=== PATIENT | male | born 1930 | race Caucasian/White ===

== ENCOUNTER 2017-10-10 23:13 | Observation (INO) | payer MEDICARE ==
[2017-10-11] MEDS ORDERED: Ondansetron ODT 4 MG TAB SL PRN (02:51)
[2017-10-11] MEDS ORDERED: Ondansetron HCl/PF 4 MG/2 ML Vial IVP PRN (02:51)
[2017-10-11] MEDS ORDERED: Acetaminophen 325 MG TAB PO PRN (02:51)
[2017-10-11] MEDS ORDERED: Carbidopa/Levodopa 25-250 mg Tablet PO SCH (07:00)
[2017-10-11] MEDS: Carbidopa/Levodopa 25-250 mg Tablet PO SCH ×3 (08:51→21:01)
[2017-10-11] MEDS ORDERED: Prevnar 13-Val Conj/PF 0.5 ML SYRINGE IM ONE (09:00)
[2017-10-11] MEDS: Donepezil HCl 10 MG TAB PO SCH (10:13)
[2017-10-11 10:37] LABS: Cardiac Risk 4.8 (Less than 4.5)
--- NOTE | 2017-10-11 10:40 | HP ---
CHIEF COMPLAINT: Left-sided pain. HISTORY OF PRESENT ILLNESS: Patient is an 87-year-old male who was transferred from the emergency department in [place]. The patient is unable to give much history and most of the history was obtained from the patient's daughter who does not actually live with the patient. They report that the patient apparently on Wednesday had simply slid out of his chair, but did not have any serious injury. Some slight bruises on his elbows on Wednesday. The patient's who came to check on him found him sleeping on the floor next to the bed, but she is not aware of any injury or fall that the patient might have had. The patient was subsequently experiencing some wincing when taking deep breaths and seemed to be focusing more on his left side. His family was gathered for his birthday yesterday when he noticed this and ultimately decided to take the patient to the [place] [facility]. There, the patient was thought to possibly have some left-sided weakness and facial droop. He was subsequently transferred to this facility for workup for possible TIA or stroke. The patient does have significant underlying Parkinson's disease and has stone facies and limited mobility. Also, of note, the patient has some history of abnormal swallowing study that the details of that are not known. PAST MEDICAL HISTORY: Primarily notable for the Parkinson's disease. PAST SURGICAL HISTORY: Hemorrhoidectomy, hernia repair and cholecystectomy. SOCIAL HISTORY: Very remote smoking history, quit in 1950s. No significant alcohol use. Patient is . Code status will be FULL CODE. Has not been able to have a discussion with the patient's family at this time. REVIEW OF SYSTEMS: Not obtainable. ALLERGIES: None. HOME MEDICATIONS: Aricept 10 mg daily, carbidopa/levodopa 25/250 one p.o. t.i.d., Ocuvite 1 tab every day and Centrum Silver 1 tab p.o. daily. PHYSICAL EXAMINATION: VITAL SIGNS: Temperature 98.4, pulse 93, respirations 16, O2 sat 93% on room air, BP is 159/71. GENERAL APPEARANCE: Age appropriate male. He is in no distress. He is a bit somnolent. He does awaken and is modestly cooperative with the exam at times. HEENT: No icteric sclerae. Pupils appeared to be reactive. NECK: Supple and symmetric. HEART: Has regular rate and rhythm without murmurs, gallops or rubs. LUNGS: Clear bilaterally, but again the patient is not taking good deep breaths. ABDOMEN: Soft, nontender, nondistended, positive bowel sounds. SKIN: Warm and dry without edema. LABORATORY DATA AND IMAGING DATA: From the outside facility, sodium 141, potassium 4.1, chloride 103, CO2 27, BUN 21.6, creatinine 1.0, glucose 110. White count 8.13, hemoglobin 14, platelets 158. Troponin less than 0.01, CK 98 , INR 1.1, PT is 14.5. UA is negative for leukocytes or nitrites. Tox screen is negative. Workup there included CT and CTA of the head and neck with no acute findings and no carotid occlusion. CT of the chest showed a left pleural effusion, which is small to moderate with some left-sided atelectasis or pneumonia and some constipation as well. ASSESSMENT AND PLAN: 1. Possible transient ischemic attack based on the patient's findings at the outside facility. He did have a CT and CTA, which were negative. We will obtain an MRI and a neuro consult. We will also get physical therapy to see the patient. 2. History of dysphagia. We will ask speech therapy to reevaluate that with the patient at this time. The possibly may have had some aspiration. 3. Pleural effusion with possible pneumonia. The patient received a dose of Levaquin at the outside facility, but that have some prolonged QT problems with the donepezil. We will change to azithromycin and Rocephin. 4. Constipation. We will give the patient stool softeners. 5. Parkinson's disease. Continue with his usual home medications. [facility]
[2017-10-11] MEDS: cefTRIAXone\\ROCEPHIN 1 GM in Sodium Chloride 0.9% 100 ML IVPB SCH (11:54)
[2017-10-11] MEDS ORDERED: Bisacodyl 10 MG SUPP PR PRN (14:52)
[2017-10-11] MEDS ORDERED: HYDROcodone/Acetaminophen 5/325 mg Tablet PO PRN (14:52)
--- NOTE | 2017-10-11 16:26 | MRI ---
MRI BRAIN WITHOUT IV CONTRAST: Date: 10/11/17 HISTORY: TIA. Patient slid out of chair on Wednesday. Generalized weakness. FINDINGS: There are patchy and confluent areas of increased FLAIR and T2-weighted signal intensity in the periv entricular and lesser extent of the subcortical white matter which is nonspecific but likely reflecti ve of moderate chronic small vessel ischemic changes. There is no evidence of an acute infarction. Th ere is mild cerebral volume loss. Septum pellucidum and third ventricle are on the midline. Ventricul ar system is normal in size, shape, and position for the degree of sulcal atrophy. Appropriate flow-voids are demonstrated at the base of the brain. [place] lenses are not visualized. Skull base has a normal MRI appearance. There is mild mucosal thickening in each maxillary antrum. There is a tiny amount of fluid seen withi n the posterior pharynx, which may be related to secretions. IMPRESSION: 1. No acute intracranial abnormalities demonstrated. 2. Chronic small vessel ischemic changes and cerebral volume loss. 3. Mild sinus disease. POS: DIMITRIS
[2017-10-11] MEDS: Enoxaparin Sodium 80 MG/0.8 ML SYRINGE SC SCH (21:00)
--- NOTE | 2017-10-12 01:26 | CON ---
DATE OF CONSULTATION: 10/11/2017 REFERRING PHYSICIAN: Dr. Freddie Bingham. REASON FOR ADMISSION: Altered mental status. HISTORY OF PRESENT ILLNESS: Mr. Awad is a pleasant 87-year-old male who has been beny rned for evaluation of altered mental status. History is obtained from daughter who was present at [facility]. Daughter reports that patient has a history of Parkinson disease that has been diagnosed at 2007. He has slowly declined in his parkinsonian symptoms and now able to walk with the support of a walker. He also having a cognitive impairment as well as hallucinations. She notes that at [facility], he tends to have some speech difficulty and hallucinations, where she states that on day before , he was sitting down in a chair and has slid down on to the floor. He did not harm himself a t that time. Few hours later, his went to go check on him and he was lying on the side of the ed. They are not sure whether he fell down or he slid down from the bed to the floor. When they got him up, he was somewhat grimacing on his left side and was complaining of this pain in the left side of the chest, which prompted them to take him to the [facility] in [place], where he was evaluated and was noted to have left facial droop and left-sided weakness and thus he was transferred over to [facility]. Daughter reports that they did not particular in appreciate any facial asymmetry or weakness on his left side. He did have a chest x-ray and CT scan of his chest do ne, which showed pericardial effusion, for which he received one dose of antibiotics on yesterday. Perez coombs feels that he has returned back to his baseline. PAST MEDICAL HISTORY, PAST SURGICAL HISTORY, FAMILY HISTORY, SOCIAL HISTORY, CURRENT MEDICATIONS, AND ALLERGIES: Reviewed, data as dictated in H and P note done by Dr. Freddie Bingham. REVIEW OF SYSTEMS: Unable to perform. PHYSICAL EXAMINATION: VITAL SIGNS: Blood pressure 126/66, pulse of 81, temperature of 97.6, respirations of 16, O2 sats of 93% on room air. GENERAL: Well-developed, well-nourished male in no apparent distress. RESPIRATORY: Clear to auscultation bilaterally. CARDIOVASCULAR: Regular rate and rhythm. NEUROLOGIC: Mental status: Patient is drowsy appearing. He does not follow any commands. He does not communicate. He remains nonverbal during my visitation. Speech and language nonverbal. Cranial nerves: Pupils are 3 mm and reactive. His face appears symmetric. Motor exam showed mild cognitiv e rigidity in both upper extremities at the wrist. 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 Sensory: Sensation appears intact to light touch. Deep tendon reflexes 1+ reflexes in both upper and lower extremities. Babinski: Pl bernadette responses flexion bilaterally. Gait and Romberg coordination could not be tested. LABORATORY DATA: Reviewed, which included D-dimer and lipid profile, which is significant for D-Dime r was 0.93. IMAGING STUDIES: MRI brain without contrast was reviewed, which showed no acute intracranial abnorma lity. IMPRESSION: 1. Altered mental status, likely toxic metabolic encephalopathy. 2. Pericardial effusion. Mr. Awad is a pleasant 87-year-old male who presented with history of Parkinson disease and dementia and psychosis presented with the altered mental status. I have reviewed his MRI brain without contrast, which showed no acute intracranial abnormality. He likely had a toxic metabolic en cephalopathy, as the cause for his recent symptoms. I would recommend continuing current medical man agement. Continue treatment for pleural effusion. Thank you for consultation.
[2017-10-12 04:28] LABS: #Basophils 0.1 thou/uL (0.0-0.2); #Eosinphils 0.1 thou/uL (0.0-0.7); #Lymphocytes 1.2 thou/uL (1.20-3.40); #Monocytes 0.8 thou/uL (0.11-0.59); #Neutrophils 4.7 thou/uL (1.40-6.50); %Basophils 1.6 % (0.0-1.0); %Eosinophils 1.5 % (0.0-10.0); %Lymphocytes 17.1 % (21.0-51.0); %Neutrophils 68.8 % (42.0-75.0); Hemoglobin 12.3 g/dL (14.0-18.0); Mean Corpuscular Hemoglobin 33.2 pg (27.0-31.0); Mean Corpuscular Volume 97.6 fL (78.0-98.0); Mean Platelet Volume 6.9 fL (7.4-10.4); Platelet Count 143 thou/uL (130-400); RBC Distribution Width 11.5 % (11.5-14.5); White Blood Cell (WBC) Count 6.8 thou/uL (4.8-10.8)
[2017-10-12 06:16] LABS: Anion Gap 16 mmol/L (10-20); BUN (Urea Nitrogen) 14 mg/dL (8.4-25.7); Calc. Creatinine Clearance 74 mL/min (70-130); Calcium 8.5 mg/dL (7.8-10.44); Carbon Dioxide 22 mmol/L (23-31); Chloride 104 mmol/L (98-107); Estimated GFR-MDRD Greater than 90; Glucose 86 mg/dL (83-110); Potassium 3.9 mmol/L (3.5-5.1); Sodium 138 mmol/L (136-145)
--- NOTE | 2017-10-12 09:12 | CT ---
CT CHEST NONCONTRAST: HISTORY: Dyspnea. Chest pain. Pleural effusion. FINDINGS: A moderate amount of pleural fluid layers within the dependent portion of the left hemithorax with a small amount of compressive atelectasis at the left lung base. The lungs are otherwise well inflated . No pleural fluid on the right. No evidence of pneumothorax. Mild arterial calcification. No bul ky mediastinal adenopathy. Scattered small, nonspecific lymph nodes are apparent. The gallbladder i s surgically absent. IMPRESSION: 1. Moderate sized left pleural effusion with mild associated compressive atelectasis. Cause is not evident. 2. Atherosclerosis. POS: TOMAS
[2017-10-12] MEDS: cefTRIAXone\\ROCEPHIN 1 GM in Sodium Chloride 0.9% 100 ML IVPB SCH (09:26)
[2017-10-12] MEDS: Enoxaparin Sodium 80 MG/0.8 ML SYRINGE SC SCH ×2 (09:27→22:16)
--- NOTE | 2017-10-12 14:50 | RAD ---
AP CHEST: History: Patient with respiratory distress. Shortness of breath. Date: 10-12-17 FINDINGS: There is a left sided pleural effusion. There may be some component of a left lower lobe atelectasis or pneumonia as well. Some cardiomegaly is seen. The right lung is well aerated. IMPRESSION: Area of opacity in the left lung base. Differential diagnosis includes pneumonia versus left sided ef fusion or a combination of the two. POS: C
[2017-10-12] MEDS ORDERED: Sodium Chloride 0.45% 500 ML IV SCH (15:30)
[2017-10-12] MEDS: Carbidopa/Levodopa 25-250 mg Tablet PO SCH ×3 (15:31→22:15)
--- NOTE | 2017-10-12 15:31 | PDOC.PN ---
- Subjective Encounter Start Date: 10/12/17 Encounter Start Time: 10:00 Patient seen a couple of times today. Was very sleepy this morning. He is more awake and alert this afternoon (3:29). He is taking some apple sauce now, but has not eaten a lot. He did have a bowel movement, but it was loose. - Objective Resuscitation Status: Resuscitation Status FULL:Full Resuscitation Vital Signs & Weight: Vital Signs (12 hours) Temp Pulse Pulse Pulse Resp BP BP 10/12/17 11:44 98.2 F 67 16 10/12/17 09:45 66 66 168/70 H 193/81 H 10/12/17 08:15 98.5 F 66 18 10/12/17 07:50 98.5 F 66 18 10/12/17 04:02 97.4 F L 73 20 BP Pulse Ox 10/12/17 11:44 140/62 94 L 10/12/17 09:45 10/12/17 08:15 10/12/17 07:50 174/74 H 91 L 10/12/17 04:02 159/75 H 94 L Weight Weight 175 lb 12.8 oz I&O: 10/11/17 10/12/17 10/13/17 06:59 06:59 06:59 Intake Total 110 890 Balance 110 890 Result Diagrams: 10/12/17 03:58 10/12/17 05:18 Phys Exam - Physical Examination Constitutional: NAD Currently awake and alert. Still not very talkative. Respiratory: no wheezing, no rales, no rhonchi, clear to auscultation bilateral Cardiovascular: RRR, no significant murmur Gastrointestinal: soft, non-tender, no distention, positive bowel sounds Musculoskeletal: no edema Neurological: non-focal, normal sensation Deviation from normal: flat affect. Skin: no rash Dx/Plan (1) TIA (transient ischemic attack) Code(s): G45.9 - TRANSIENT CEREBRAL ISCHEMIC ATTACK, UNSPECIFIED Status: Acute Comment: Initially thought to be TIA at outside facility, but per family he did not have any acute neuro changes. Negative work up. Cleared by Neurology. (2) Pleural effusion Code(s): J90 - PLEURAL EFFUSION, NOT ELSEWHERE CLASSIFIED Status: Acute Comment: Unclear etiology. Did have a minor injury that could be source. May be parapneumonic or PE. Had CT chest today. VQ pending. LE doppler pending. (3) Parkinson disease Code(s): G20 - PARKINSON'S DISEASE Status: Acute Comment: Continue with Sinemet as he is able to take it with his level of alertness. (4) Dysphagia Code(s): R13.10 - DYSPHAGIA, UNSPECIFIED Status: Acute Comment: Eval'd by [employer]. On mechanical soft and thin liquids. (5) Constipation Code(s): K59.00 - CONSTIPATION, UNSPECIFIED Status: Acute Comment: Had constipation on outside imaging. Had a BM but liquid. Will go ahead with Miralax that was ordered. It has not been given yet as he was not awake and alert enough to drink it. Will give a little IVF as well. May be a little dry. Not taking much PO. - Plan * Discussed with patient's daughter. His level of alertness waxes and wanes all the time. This is not unusual for him, but it has made it difficult to treat him with oral meds. Will give the miralax now. Awaiting the results of the VQ and LE dopplers. Anticipate discharge in the morning with oral antibiotics assuming no PE.
[2017-10-12] MEDS: Polyethylene Glycol 3350 17 GM Packet PO SCH (15:32)
[2017-10-12] MEDS: Saccharomyces boulardii 250 MG CAP PO SCH (15:32)
[2017-10-12] MEDS: Donepezil HCl 10 MG TAB PO SCH (15:32)
--- NOTE | 2017-10-12 15:42 | ULT ---
BILATERAL EXTREMITY VENOUS ULTRASOUND WITH DOPPLER 10/12/17 HISTORY: Chest pain. Shortness of breath. Evaluate for thrombus. COMPARISON: None. TECHNIQUE: Mcclelland scale, color flow, doppler imaging with spectral waveform analysis performed in the left and rig ht lower extremity venous system. FINDINGS: Bilateral compressibility, compressive flow and augmentation of the common femoral vein, femoral vein , and popliteal vein. Flow in the greater saphenous vein, profunda vein and posterior tibial veins. IMPRESSION: No evidence of thrombus in the left or right lower extremity deep venous system. POS: DIMITRIS
[2017-10-13 06:17] VITALS: BMI 26.6
[2017-10-13] MEDS: Donepezil HCl 10 MG TAB PO SCH (08:59)
[2017-10-13] MEDS: Carbidopa/Levodopa 25-250 mg Tablet PO SCH ×2 (08:59→15:43)
[2017-10-13] MEDS: Saccharomyces boulardii 250 MG CAP PO SCH (08:59)
[2017-10-13] MEDS: Enoxaparin Sodium 80 MG/0.8 ML SYRINGE SC SCH (09:00)
[2017-10-13] MEDS: Polyethylene Glycol 3350 17 GM Packet PO SCH (09:03)
[2017-10-13] MEDS: cefTRIAXone\\ROCEPHIN 1 GM in Sodium Chloride 0.9% 100 ML IVPB SCH (10:15)
--- NOTE | 2017-10-13 10:48 | NM ---
NUCLEAR MEDICINE VENTILATION PERFUSION SCAN: (V/Q SCAN) 10/12/2017 HISTORY: An 87-year-old male with chest pain and dyspnea. Rule out PE. TECHNIQUE: Xenon-133 gas dose: 21.9 millicuries. [id number] dose: 6.5 millicuries. The patient inhaled Xenon-133 gas, and dynamic ventilation scintigraphy was performed. [id number] was injected IV, and multiple perfusion scintigraphic views were obtained. FINDINGS: There are no moderate-sized or large perfusion defects. There are no significant ventilation/perfusi on mismatches. IMPRESSION: Low probability for pulmonary thromboembolism. jn [] POS: DIMITRIS
[2017-10-13 12:00] VITALS: TEMP 97.4
[2017-10-13 12:46] VITALS: BP 139/64
--- NOTE | 2017-10-13 15:05 | PDOC.PN ---
- Subjective Encounter Start Date: 10/13/17 Encounter Start Time: 15:03 Mr. Awad was seen today in follow-up. He has no complaints. - Objective Resuscitation Status: Resuscitation Status FULL:Full Resuscitation MAR Reviewed: Yes Vital Signs & Weight: Vital Signs (12 hours) Temp Pulse Pulse Pulse Resp BP BP 10/13/17 11:59 97.4 F L 68 16 10/13/17 09:34 74 67 139/64 148/69 H 10/13/17 08:50 97.4 F L 68 16 10/13/17 07:47 98.3 F 68 16 10/13/17 06:41 62 10/13/17 04:00 98.0 F 67 18 BP Pulse Ox 10/13/17 11:59 133/63 96 10/13/17 09:34 10/13/17 08:50 10/13/17 07:47 170/75 H 97 10/13/17 06:41 158/72 H 10/13/17 04:00 180/75 H 96 Weight Weight 175 lb 11.2 oz I&O: 10/12/17 10/13/17 10/14/17 06:59 06:59 06:59 Intake Total 890 240 Output Total 200 Balance 890 40 Result Diagrams: 10/12/17 03:58 10/12/17 05:18 Phys Exam - Physical Examination HEENT: PERRLA Respiratory: no wheezing, no rales, no rhonchi, clear to auscultation bilateral Cardiovascular: RRR, no significant murmur, no rub Gastrointestinal: soft, non-tender, positive bowel sounds Musculoskeletal: no edema Dx/Plan (1) Pneumonia, community acquired Code(s): J18.9 - PNEUMONIA, UNSPECIFIED ORGANISM Status: Acute (2) Parkinson disease Code(s): G20 - PARKINSON'S DISEASE Status: Acute Comment: Continue with Sinemet as he is able to take it with his level of alertness. - Plan * Pneumonia- he is clinically improved- VQ scan and lower extremity dopplers were negative * He is stable for discharge home * TIA, and CVA were ruled out.
--- NOTE | 2017-10-14 01:21 | DIS ---
DATE OF ADMISSION: 10/11/2017 DATE OF DISCHARGE: 10/13/2017 PRIMARY CARE PHYSICIAN: Dr. Edward Rowley. DISCHARGE DISPOSITION: Home. PRIMARY DISCHARGE DIAGNOSES: 1. Community-acquired pneumonia. 2. Advanced Parkinson's disease. DISCHARGE MEDICATIONS: Include Levaquin 500 mg 1 p.o. daily, continue carbidopa/levodopa 25/250 one tablet 3 times a day, Aricept 10 mg daily, vitamin C and lutein once daily, and multivitamin once a d ay. CODE STATUS: FULL CODE. ALLERGIES: No known drug allergies. PROCEDURES DONE DURING ADMISSION: Patient had an MRI of the brain showing no acute intracranial abno rmalities and some chronic small vessel disease, mild sinus disease. The patient had a CT scan of th e chest showing moderate-sized pleural effusion with an associated compressive atelectasis. The gary ent had lower extremity venous Dopplers, which were negative and V/Q scan which was low probability f or PE. HOSPITAL COURSE: Mr. Awad is a pleasant 87-year-old gentleman who presented to the emergency [facility] with generalized weakness and some weakness on the left side. He was initially thought to possibly have a TIA, but this was ruled out by Neurology. MRI of the brain was negative. It was found that he had some atelectasis and effusion by CT scan. A follow up chest x-ray the following day demonstra jose evidence for possible infiltrate in that area. V/Q scan was low probability. He was treated wit h IV antibiotics and then switched to oral antibiotics and is being discharged home on Levaquin and i s to have close outpatient followup.
== END 2017-10-13 17:12 | disposition home or self-care (01) ==
LOC: ERS 23:13 → 2SE 10-11 01:00
PROVIDERS: ADMIT Hospitalist; ATTEND Hospitalist
DX: J18.9 Pneumonia, unspecified organism (principal); G20 Parkinson's disease; R41.82 Altered mental status, unspecified; I31.3 Pericardial effusion (noninflammatory); K59.00 Constipation, unspecified; Z79.899 Other long term (current) drug therapy
CPT/HCPCS: 70551; 71045; 71260; 78582; 80048; 80061; 85025; 85379; 87040; 93005; 93970; 96361; 96365; 96366 ×2; 96367; 96372 ×3; 97110; 97139 ×3; 97530 ×2; 99285; A9540; A9558; G0378 ×3; G8978; G8979; 36415; 90471; 90670; G0009; G8996-GN-CK; G8997-GN-CJ; J0696; J1650; J1956; J7050

== ENCOUNTER 2017-12-14 01:59 | Inpatient (IN) | payer MEDICARE ==
[2017-12-14 03:15] LABS: #Eosinphils 0.1 thou/uL (0.0-0.7); #Lymphocytes 0.9 thou/uL (1.20-3.40); #Monocytes 0.9 thou/uL (0.11-0.59); #Neutrophils 10.3 thou/uL (1.40-6.50); %Basophils 0.3 % (0.0-1.0); %Eosinophils 0.8 % (0.0-10.0); %Lymphocytes 7.4 % (21.0-51.0); %Monocytes 7.5 % (0.0-10.0); %Neutrophils 84.1 % (42.0-75.0); Hemoglobin 12.9 g/dL (14.0-18.0); Mean Corpuscular HGB CONC 32.6 g/dL (32.0-36.0); Mean Corpuscular Hemoglobin 32.5 pg (27.0-31.0); Mean Corpuscular Volume 99.8 fL (78.0-98.0); Mean Platelet Volume 7.2 fL (7.4-10.4); Platelet Count 144 thou/uL (130-400); RBC Distribution Width 11.8 % (11.5-14.5); Red Blood Cell (RBC) Count 3.95 mill/uL (4.70-6.10); White Blood Cell (WBC) Count 12.3 thou/uL (4.8-10.8)
[2017-12-14 03:39] LABS: ALT (SGPT) 15 U/L (8-55); AST (SGOT) 21 U/L (5-34); Albumin 3.9 g/dL (3.4-4.8); Alkaline Phosphatase 105 U/L (40-150); Anion Gap 12 mmol/L (10-20); BUN (Urea Nitrogen) 26 mg/dL (8.4-25.7); Bilirubin, Total 0.7 mg/dL (0.2-1.2); Calc. Creatinine Clearance 0 mL/min (70-130); Calcium 8.9 mg/dL (7.8-10.44); Carbon Dioxide 25 mmol/L (23-31); Chloride 106 mmol/L (98-107); Estimated GFR-MDRD 79; Globulin 2.7 g/dL (2.4-3.5); Glucose 119 mg/dL (83-110); Lipase 26 U/L (8-78); Potassium 4.1 mmol/L (3.5-5.1); Protein, Total 6.6 g/dL (5.8-8.1); Sodium 139 mmol/L (136-145)
[2017-12-14] MEDS ORDERED: Morphine 4 MG/ML VIAL IV PRN ×2 (05:45→05:56)
[2017-12-14] MEDS ORDERED: Ondansetron ODT 4 MG TAB PO PRN (05:45)
[2017-12-14] MEDS ORDERED: hydrALAZINE 20 MG/ML VIAL SLOW IVP PRN (05:45)
[2017-12-14] MEDS ORDERED: Dextrose 50% Abboject 50 ML SYRINGE SLOW IVP PRN (05:45)
[2017-12-14] MEDS ORDERED: Ondansetron HCl/PF 4 MG/2 ML Vial IVP PRN (05:45)
[2017-12-14] MEDS ORDERED: Dextrose 5% in Water 1,000 ML IV PRN (05:45)
[2017-12-14] MEDS: Ketorolac Tromethamine 30 MG/ML VIAL IVP SCH ×4 (06:30→19:04)
[2017-12-14] MEDS: Acetaminophen 1,000 MG in Premix Bag 1 BAG IVPB SCH ×3 (06:32→15:28)
[2017-12-14] MEDS: Sodium Chloride 0.9% 1,000 ML IV SCH ×3 (07:15→21:16)
--- NOTE | 2017-12-14 09:11 | HP-2 ---
DATE OF ADMISSION: 12/14/2017 REQUESTING PHYSICIAN: Dr. Soria. ATTENDING SURGEON: Dr. Greer. CONSULTATION: Orthopedics, Dr. Palacios. HISTORY OF PRESENT ILLNESS: The patient is an 87-year-old man, who was transferred here fr [facility] after a reported fall, approximately 1500 hours yesterday. The patient was taken to the emergency room in [place], and on examination and evaluation he was noted to have a right hip frac ture, at which time, he was transferred to our facility for evaluation for admission and obtain ortho pedic consultation. The details surrounding his fall are very limited; however, the patient has sign ificant Parkinson's that makes him essentially noncontributory to his history, and ER records just de scribed his fall as tripping and falling. There is no mention of loss of consciousness. The note do es that this is his baseline for mentation. No family members have accompanied the patient to the hospital either. The majority of his history is gleaned from a previous admission in October of t his year and other records. ALLERGIES: None. CURRENT MEDICATIONS: Carbidopa-levodopa, benazepril, Ocuvite, and Centrum Silver. PAST MEDICAL HISTORY: Parkinson disease. PAST SURGICAL HISTORY: Hemorrhoidectomy, cholecystectomy, and hernia repair. SOCIAL HISTORY: There is no history of drug, tobacco, or alcohol use. REVIEW OF SYSTEMS: Ten-point review of system is negative, unless otherwise stated. PHYSICAL EXAMINATION: VITAL SIGNS: Blood pressure 148/87, heart rate 85, respirations 16, oxygen saturation is 98% on room air, temperature is 98.5. GENERAL: The patient is resting comfortably in bed. He is asleep, but easily awakens to gentle voic e stimulation. The patient will say words, but is essentially noncommunicative. HEENT: Head is normocephalic and atraumatic. Eyes: PERRLA. Patient does not follow commands to as sess his extraocular motion. Ears are atraumatic without discharge. Nose is atraumatic without disc harge. Oropharynx is clear. NECK: Nontender. Trachea is midline. No JVD. CHEST: Clear to auscultation with moderate inspiratory and expiratory effort. Again, following comm ands may limit this. HEART: Regular rate and rhythm. ABDOMEN: Soft, flat, nontender with active bowel sounds. Pelvis is stable with tender to palpation to his right hip consistent with his fracture. EXTREMITIES: Neurovascularly intact x4. BACK: By report is nontender and atraumatic. LABORATORY FINDINGS: White blood cell count 12.3, hemoglobin 12.9, hematocrit 39.5, platelets 144,00 0. Sodium 139, potassium 4.1, chloride 106, CO2 of 25, BUN 26, creatinine 0.91, glucose 119. LFTs a re unremarkable. RADIOGRAPHS: By report, the patient has a right hip fracture. We will be repeating his radiographs here in our facility. ASSESSMENT AND PLAN: 1. Status post fall, details unknown. 2. Right hip fracture. 3. History of Parkinson's. Plan will be to admit the patient to the surgical floor, keep him n.p.o. We will locate next of kin to obtain consent for surgical intervention by Orthopedics. Patient will have pain control, pulmonar y toilet, gastritis, mechanical venous thromboembolism prophylaxis. The evaluation, examination, lab oratory, and radiographic findings were discussed with Dr. Greer after this dictation.
[2017-12-14] MEDS: Famotidine 20 MG TAB PO SCH ×2 (09:54→21:14)
[2017-12-14] MEDS ORDERED: CEFAZOLIN/Water 2 GM/20 ML SYRINGE ONE (11:17)
--- NOTE | 2017-12-14 12:24 | CON ---
DATE OF CONSULTATION: 12/14/2017 CONSULTING PHYSICIAN: Dr. Dakotah Palacios The admission date was earlier this morning. Family is at bedside. HISTORY OF PRESENT ILLNESS: The patient is an 87-year-old male who fell at home. He was seen in [facility] and transferred to our hospital. He does have some Alzheimer's, Parkinson's and some dementia . The family says he is active and walks and shuffles around. He has some good days of mentation, b ut for the most part they have noticed that he has gotten a little more confused. He complains of ri ght hip pain mostly with moving him around he groans. ALLERGIES: None. CURRENT MEDICATIONS: Carbidopa/levodopa, benazepril, Ocuvite, Centrum Silver. PAST MEDICAL HISTORY: Parkinson's with dementia, possible Alzheimer's. PAST SURGICAL HISTORY: Hemorrhoidectomy, cholecystectomy, hernia repair. SOCIAL HISTORY: Resides at home and has home health, home PT come to visit him. No alcohol, drugs, or nicotine products. REVIEW OF SYSTEMS: Gathered from the family. He is otherwise healthy, but his mentation is diminish ed. PHYSICAL EXAMINATION: GENERAL: Well-nourished appearing male, resting in no acute distress. Speech is somewhat clear and he answers only very simple questions okay, oriented x1 to person. HEENT: Normal exam. Face symmetric, tongue midline. NECK: Supple, trachea midline. EXTREMITIES: Upper extremities; equal size, shape, symmetry, normal bulk and tone. RESPIRATORY: No distress. LOWER EXTREMITIES: Right lower extremity a little bruising, edema over the hip and some tenderness t o palpation in that area, any movement of that right lower extremity causes patient a good deal of pa in. Sensations are intact as are DP and PT pulses. ASSESSMENT: 1. Fall with ensuing right hip fracture. 2. Parkinson's/dementia. PLAN: I spoke with family and went over risks, benefits of doing surgery versus not doing surgery. They understand the need to keep patient walking so as helpful not to diminish more and they have giv en verbal authorization to undergo a right hip dynamic hip screw stabilization. I explained the proc edure, risks, and benefits of surgery. I have gone over all their questions and they are amenable to go forth with surgery. Trauma is admitting and they will take care of any of his health issues he h as. We will follow him up with the hip and get him going with physical therapy and they will need ca se management and probably placement postoperatively also.
[2017-12-14] MEDS ORDERED: PROPOFOL 200 MG/20 ML VIAL ONE (12:53)
[2017-12-14] MEDS ORDERED: traMADol HCl 50 MG TAB PO PRN ×3 (12:57→17:49)
--- NOTE | 2017-12-14 14:04 | OP ---
DATE OF SURGERY: 12/14/2017 PREOPERATIVE DIAGNOSIS: Right intertrochanteric femur fracture. POSTOPERATIVE DIAGNOSIS: Right intertrochanteric femur fracture. SURGICAL PROCEDURE: DHS right intertrochanteric femur. ANESTHESIA: General. SURGEON: Dakotah Palacios M.D. BOILING TUB OPERATOR: Lino Tam PA-C. BLOOD LOSS: 50 mL IMPLANTS: Synthes DHS 135 degree 3-hole sideplate with three 4.5 mm screws, and 100 mm hip screw. COMPLICATIONS: None. DRAINS: None. SPECIMENS: None. OUTCOME: Satisfactory. INDICATIONS: The patient is an 87-year-old gentleman status post ground level fall sustaining a righ t intertrochanteric femur fracture. After discussion with patient and his family including risks and benefits, we decided to proceed with stabilization of this intertrochanteric with a DHS device. Inf ormed consent has been obtained. All questions answered. PROCEDURE: The patient was brought to the operating room and timeout performed followed by induction of general anesthesia. Next, the patient was positioned on the fracture table with the well leg hel d in extension and the injured extremity in longitudinal traction. Next, a sterile prep and drape wa s performed of the lateral right thigh. Next, a vertical incision was made starting distal to the gr eater trochanter extending along the shaft of the femur. After skin was sharply incised, dissection was carried down to the underlying fascia desiree. This was incised in line with skin incision revealin g the underlying vastus lateralis fascia. This was incised in-line with the skin incision and then t he muscle belly was swept off of the posterior leaflet of fascia gaining access to the lateral femur. Next, an elevator was passed over the anterior femur. Next, a threaded guidewire was passed from t he lateral cortex of the femur up into the femoral neck and head. This was then followed by measurem ent off of this pin with 105 mm depth being of appropriate length. The step reamer was then passed o dereck the guidewire reaming 205 mm. The 135 degrees sideplate with a 100 mm hip screw was inserted ove r the guidewire. Once fully positioned, the plate was held up against the femur well. A total of th ree 4.5 mm screws were placed across the side plate into the proximal femoral shaft. This resulted i n excellent stability of the fracture in anatomic alignment with appropriate positioning of hardware. Final AP, lateral C-arm images were then obtained and then wound closure performed with 0 Vicryl fo r the fascia, 2-0 Vicryl subcutaneously, and yani for the skin. Xeroform gauze dressing was then applied to the thigh and then patient was transferred to recovery room in stable condition. There we re no complications. He tolerated the procedure well.
[2017-12-14] MEDS: Carbidopa/Levodopa 25-250 mg Tablet PO SCH ×2 (17:08→21:14)
[2017-12-14] MEDS: traMADol HCl 50 MG TAB PO SCH ×2 (19:01→23:17)
[2017-12-14] MEDS ORDERED: Ketorolac Tromethamine 30 MG/ML VIAL IVP SCH (21:00)
[2017-12-14] MEDS: Aspirin 81 mg Enteric Coated Tablet PO SCH (21:14)
[2017-12-14] MEDS: Acetaminophen 500 MG TAB PO SCH ×2 (21:14→23:17)
[2017-12-14] MEDS: Senokot S 8.6-50 MG TAB PO SCH (21:15)
--- NOTE | 2017-12-14 23:26 | RAD ---
RIGHT HIP TWO VIEWS: 12/14/17 HISTORY: Intertrochanteric fracture of the right femur. FINDINGS/IMPRESSION: Three spot fluoroscopic intraoperative images of the right hip demonstrates interval reduction and in ternal fixation of the intertrochanteric fracture since the previous day's exam. POS: [facility]
[2017-12-15] MEDS: Acetaminophen 500 MG TAB PO SCH ×4 (03:59→21:59)
[2017-12-15] MEDS: Ibuprofen 800 MG TAB PO SCH ×3 (05:42→21:59)
[2017-12-15] MEDS: traMADol HCl 50 MG TAB PO SCH ×3 (05:42→18:12)
[2017-12-15] MEDS: Sodium Chloride 0.9% 1,000 ML IV SCH ×3 (05:43→23:30)
[2017-12-15 06:08] LABS: #Eosinphils 0.4 thou/uL (0.0-0.7); #Lymphocytes 0.7 thou/uL (1.20-3.40); #Monocytes 0.8 thou/uL (0.11-0.59); #Neutrophils 8.2 thou/uL (1.40-6.50); %Basophils 0.1 % (0.0-1.0); %Eosinophils 3.5 % (0.0-10.0); %Lymphocytes 7.2 % (21.0-51.0); %Monocytes 8.2 % (0.0-10.0); %Neutrophils 81.1 % (42.0-75.0); Hemoglobin 12.2 g/dL (14.0-18.0); Mean Corpuscular HGB CONC 32.8 g/dL (32.0-36.0); Mean Corpuscular Hemoglobin 32.7 pg (27.0-31.0); Mean Corpuscular Volume 99.9 fL (78.0-98.0); Mean Platelet Volume 7.7 fL (7.4-10.4); Platelet Count 107 thou/uL (130-400); RBC Distribution Width 11.8 % (11.5-14.5); Red Blood Cell (RBC) Count 3.74 mill/uL (4.70-6.10); White Blood Cell (WBC) Count 10.2 thou/uL (4.8-10.8)
[2017-12-15 06:19] LABS: Anion Gap 12 mmol/L (10-20); BUN (Urea Nitrogen) 23 mg/dL (8.4-25.7); Calc. Creatinine Clearance 73 mL/min (70-130); Calcium 8.2 mg/dL (7.8-10.44); Carbon Dioxide 23 mmol/L (23-31); Chloride 107 mmol/L (98-107); Estimated GFR-MDRD 89; Glucose 104 mg/dL (83-110); Potassium 4.2 mmol/L (3.5-5.1); Sodium 138 mmol/L (136-145)
[2017-12-15 06:54] LABS: Magnesium 2.2 mg/dL (1.6-2.6); Phosphorus 3.2 mg/dL (2.3-4.7)
--- NOTE | 2017-12-15 08:03 | PRG-2 ---
DATE OF SERVICE: 12/14/2017 SUBJECTIVE: The patient is an 87-year-old gentleman with a past medical history significant for Parkinson's disease and a history of TIA, who is status post a mechanical fall when he sustained a right intertrochanteric hip fracture. The patient is postop day 0 status post surgical repair of his hip fracture. The patient tolerated the procedure well with no complications. On exam, the patient was resting comfortably in bed in no acute distress. Family is at bedside and states the patient has slept almost all day since his operation. They feel that his pain is well controlled. OBJECTIVE: VITAL SIGNS: Temperature 97.5 degrees Fahrenheit, pulse 82, respirations 14, O2 sat 96% on room air, blood pressure 153/68. GENERAL: The patient is an elderly gentleman, resting in bed peacefully with his eyes closed and in no apparent distress. HEENT: Atraumatic, normocephalic. HEART: Regular rate and rhythm, no murmurs. LUNGS: Clear to auscultation bilaterally. Good inspiratory and expiratory effort. ABDOMEN: Soft, nondistended, nontender. Normal bowel sounds noted. EXTREMITIES: Unable to assess range of motion in extremities secondary to patient sleeping. However, the patient is neurovascularly intact x4. NEUROLOGIC: Unable to assess due to patient sleeping. LABORATORY DATA: There is no new laboratory data for review. RADIOLOGIC DATA: There is no new radiologic data for review. ASSESSMENT: 1. Status post mechanical fall. 2. Right hip fracture, status post repair. 3. History of Parkinson's disease. PLAN: We will resume a normal diet as the patient is postop day #0. Will switch to p.o. pain medications in the morning and continue a scheduled pain and bowel regimen. Will have the patient begin working with physical and occupational therapy tomorrow morning. Will initiate GI and VTE prophylaxis as appropriate. Will follow the patient's hemoglobin and electrolyte levels closely with morning labs. Will ensure Case Management and Rehab are consulted regarding the patient's disposition upon discharge. The plan was discussed with the trauma attending, Dr. Kenneth Asencio. [facility]
[2017-12-15] MEDS: Polyethylene Glycol 3350 17 GM Packet PO SCH (08:47)
[2017-12-15] MEDS: Donepezil HCl 10 MG TAB PO SCH (08:48)
[2017-12-15] MEDS: Carbidopa/Levodopa 25-250 mg Tablet PO SCH ×3 (08:48→21:59)
[2017-12-15] MEDS: Aspirin 81 mg Enteric Coated Tablet PO SCH ×2 (08:48→21:59)
[2017-12-15] MEDS: Famotidine 20 MG TAB PO SCH ×2 (08:55→21:59)
[2017-12-15] MEDS: Vit A,C & E/Lutein/Minerals Tablet PO SCH (08:56)
[2017-12-15] MEDS: Multivit, Therapeutic 1 TAB PO SCH (08:56)
[2017-12-15] MEDS: Senokot S 8.6-50 MG TAB PO SCH ×2 (08:56→21:59)
--- NOTE | 2017-12-15 13:58 | PRG-2 ---
DATE OF SERVICE: 12/15/2017 SUBJECTIVE: The patient is an 87-year-old gentleman with a past medical history significant for Parkinson's disease and dementia who is postoperative day #1, status post repair of a right hip fracture that he suffered via mechanical fall at home. The patient required in and out catheterization overnight and had only 325 mL of output via Triana and one urine diaper overnight. He had significantly decreased p.o. intake yesterday secondary to sleeping most of the day following his surgery. He also developed a fever up to 100.6 overnight, but was not tachycardic or hypotensive. On exam this morning, the patient is much more alert compared to his exam yesterday afternoon. He is able to answer questions appropriately; however, he only gives one-word yes or no responses to questions. Family at bedside and states he is doing much better and is much more alert this morning. OBJECTIVE: VITAL SIGNS: Temperature 97.7 degrees Fahrenheit, pulse 74, respirations 18, O2 sat 96% on room air, blood pressure 111/66. GENERAL: The patient is an elderly gentleman, sitting up in bed, eating lunch that is being fed to him by family members, in no acute distress. HEENT: Normocephalic, atraumatic. CARDIOVASCULAR: Regular rate and rhythm, no murmurs. LUNGS: Decreased inspiratory and expiratory effort. Distant breath sounds, but clear to auscultation bilaterally. GASTROINTESTINAL: Abdomen is soft, nontender, nondistended. Normal bowel sounds noted. EXTREMITIES: The patient is neurovascularly intact x4, able to move both feet and toes. NEUROLOGIC: The patient is more alert compared to yesterday, but unable to assess orientation. The patient only responds with a yes or no to questioning. No focal deficits noted. LABORATORY DATA: White blood count 10.2, hemoglobin 12.2, hematocrit 37.3, platelets 107. Sodium 138, potassium 4.2, chloride 107, bicarbonate 23, BUN 23 , creatinine 0.82, glucose 104, phosphorus 3.2, magnesium 2.2. RADIOLOGIC DATA: There is no new radiologic data for review. ASSESSMENT AND PLAN: 1. Status post fall, details unknown. 2. Right hip fracture, status post repair. 3. History of Parkinson's disease. 4. Dementia secondary to above. 5. Acute traumatic pain. 6. Postoperative fever. PLAN: Will continue with a heart healthy diet today and closely monitor the patient's volume status with repeat labs in the morning & examination of his intake and output. Will consul speech therapy due to concerns with patient's ability to swallow. Will continue to monitor his fever and treat it along with this pain with scheduled Tylenol and ibuprofen. Will obtain a UA via a Triana catheter and a CXR to r/o infectious sources of patient's fever. Will continue with aspirin b.i.d. for deep venous thrombosis prophylaxis. Will continue to follow electrolytes and blood counts closely with daily a.m. labs. Will continue physical therapy and occupational therapy while patient is in the hospital. The patient's family has chosen to have the patient transferred to a swing bed in [place] upon discharge. Paperwork initiated today. This plan was discussed with the trauma attending, Dr. Kenneth Asencio. SONIA
[2017-12-15 14:49] LABS: Bilirubin Negative (Negative); Blood, Urine Negative (Negative); Clarity CLEAR (Clear); Glucose, Urine (Dipstick) Negative (Negative); Leukocyte Negative (Negative); Nitrite Negative (Negative); Protein, Urine (Dipstick) 30 mg/dL (Neg-Trace); Specific Gravity, Urine 1.036 (1.002-1.036); pH, Urine 6.5 (5.0-9.0)
[2017-12-15 14:52] LABS: Hyaline Casts/LPF 0-3 HYALINE CAST LPF (0-3 Hyaline); Pathc Cast-AUWi Flag 0.14 (0-2.49); WBC/HPF 0-3 HPF (0-3)
[2017-12-15 15:00] LABS: Bacteria/HPF Rare-Few HPF (None Seen); RBC/HPF 0-3 HPF (0-3); Renal Epithelial None Seen HPF (0-3); Transitional Epithelial NONE SEEN HPF (0-3)
--- NOTE | 2017-12-15 15:44 | RAD ---
TWO VIEWS CHEST: History: Fever. Comparison: 12-13-17 FINDINGS: Single view of the chest shows a cardiomediastinal silhouette which is upper limits of normal in size . There is no evidence of consolidation, mass, or pleural effusions. Degenerative changes are seen in the spine. IMPRESSION: No evidence of acute cardiopulmonary disease. POS: [facility]
[2017-12-15] MEDS ORDERED: Sulfameth/Trimethoprim DS 800-160mg TAB PO SCH (21:00)
[2017-12-16] MEDS: traMADol HCl 50 MG TAB PO SCH ×5 (00:40→17:46)
[2017-12-16] MEDS: Acetaminophen 500 MG TAB PO SCH ×4 (03:52→21:44)
[2017-12-16] MEDS: Ibuprofen 800 MG TAB PO SCH ×3 (05:12→21:46)
[2017-12-16] MEDS: Sodium Chloride 0.9% 1,000 ML IV SCH ×2 (05:13→15:03)
[2017-12-16 05:57] LABS: #Eosinphils 0.2 thou/uL (0.0-0.7); #Lymphocytes 0.8 thou/uL (1.20-3.40); #Monocytes 0.9 thou/uL (0.11-0.59); #Neutrophils 7.2 thou/uL (1.40-6.50); %Basophils 0.2 % (0.0-1.0); %Eosinophils 2.3 % (0.0-10.0); %Monocytes 9.4 % (0.0-10.0); %Neutrophils 79.1 % (42.0-75.0); Hemoglobin 11.9 g/dL (14.0-18.0); Mean Corpuscular Hemoglobin 32.1 pg (27.0-31.0); Mean Platelet Volume 7.7 fL (7.4-10.4); Platelet Count 121 thou/uL (130-400); RBC Distribution Width 11.6 % (11.5-14.5); Red Blood Cell (RBC) Count 3.71 mill/uL (4.70-6.10); White Blood Cell (WBC) Count 9.1 thou/uL (4.8-10.8)
[2017-12-16 06:16] LABS: Anion Gap 11 mmol/L (10-20); BUN (Urea Nitrogen) 24 mg/dL (8.4-25.7); Calc. Creatinine Clearance 73 mL/min (70-130); Calcium 8.3 mg/dL (7.8-10.44); Carbon Dioxide 24 mmol/L (23-31); Chloride 109 mmol/L (98-107); Estimated GFR-MDRD 89; Glucose 107 mg/dL (83-110); Magnesium 2.2 mg/dL (1.6-2.6); Potassium 3.9 mmol/L (3.5-5.1); Sodium 140 mmol/L (136-145)
[2017-12-16] MEDS: Polyethylene Glycol 3350 17 GM Packet PO SCH (09:15)
[2017-12-16] MEDS: Carbidopa/Levodopa 25-250 mg Tablet PO SCH ×3 (09:16→21:44)
[2017-12-16] MEDS: Aspirin 81 mg Enteric Coated Tablet PO SCH ×2 (09:16→21:44)
[2017-12-16] MEDS: Donepezil HCl 10 MG TAB PO SCH (09:16)
[2017-12-16] MEDS: Famotidine 20 MG TAB PO SCH ×2 (09:26→21:44)
[2017-12-16] MEDS: Senokot S 8.6-50 MG TAB PO SCH ×2 (09:27→21:44)
[2017-12-16] MEDS: Vit A,C & E/Lutein/Minerals Tablet PO SCH (09:27)
[2017-12-16] MEDS: Multivit, Therapeutic 1 TAB PO SCH (09:27)
[2017-12-16 20:05] VITALS: BP 134/81; TEMP 98.8
[2017-12-17] MEDS: traMADol HCl 50 MG TAB PO SCH (00:54)
[2017-12-17] MEDS: Sodium Chloride 0.9% 1,000 ML IV SCH (00:54)
== END 2017-12-17 09:20 | DRG 482 ==
LOC: ERS 01:59 → SURG A 03:59
PROVIDERS: ADMIT Specialist; ATTEND Specialist
PROC: 0QS604Z Reposition Right Upper Femur with Internal Fixation Device, Open Approach (ICD-10-PCS; principal; 2017-12-14)
DX: S72.141A Displaced intertrochanteric fracture of right femur, initial encounter for closed fracture (principal); W19.XXXA Unspecified fall, initial encounter; F02.80 Dementia in other diseases classified elsewhere, unspecified severity, without behavioral disturbance, psychotic disturbance, mood disturbance, and anxiety; Z79.899 Other long term (current) drug therapy; G20 Parkinson's disease; R50.82 Postprocedural fever; Z86.73 Personal history of transient ischemic attack (TIA), and cerebral infarction without residual deficits; G30.9 Alzheimer's disease, unspecified
CPT/HCPCS: 36415; 71045; 76001; 80048; 80053; 81001; 83690; 83735; 84100; 85025; 90471; 90662; 99285; C1713; C1769; G0008; G8978-GP-CL; G8979-GP-CJ; G8987-GO-CL; G8988-GO-CJ; G8996-GN-CL; G8997-GN-CK; J0131; J1885; J2704